=== PATIENT | male | born 1980 | race Two or more races ===

== ENCOUNTER 2019-05-24 13:56 | Emergency (ER) | payer SELFPAY ==
[~2019-05-24] VITALS: Ht 170.2 cm; Wt 73.3 kg
--- NOTE | 2019-05-24 14:32 | NUR ---
STAPLE SIDE LASTER NOTE: C COLLAR APPLIED. PT WHEELED TO ROOM 5.
[2019-05-24] MEDS ORDERED: HYDROcodone/APAP 5/325 TABLET PO ONE (15:00)
[2019-05-24] MEDS ORDERED: HYDROcodone/APAP 5/325 TABLET ONE (15:17)
[2019-05-24] MEDS ORDERED: ONDANSETRON ODT 4 MG PO ONE (16:00)
[2019-05-24] MEDS ORDERED: ONDANSETRON ODT 4 MG ONE (16:05)
[2019-05-24 16:10] VITALS: BP 117/70
== END 2019-05-24 16:12 | disposition home or self-care (01) ==
LOC: ED 16:06
DX: S16.1XXA Strain of muscle, fascia and tendon at neck level, initial encounter (principal); S20.211A Contusion of right front wall of thorax, initial encounter; S70.01XA Contusion of right hip, initial encounter; Y04.8XXA Assault by other bodily force, initial encounter; Y93.89 Activity, other specified; Y92.410 Unspecified street and highway as the place of occurrence of the external cause; Y99.8 Other external cause status
CPT/HCPCS: 71101; 72125; 73502; 99284; Q0162

== ENCOUNTER 2020-04-06 09:45 | Emergency (ER) | payer SELFPAY ==
[~2020-04-06] VITALS: Ht 172.7 cm; Wt 71.0 kg
--- NOTE | 2020-04-06 11:03 | NUR ---
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
[2020-04-06] MEDS ORDERED: HYDROcodone/APAP 5/325 TABLET ONE (11:24)
[2020-04-06] MEDS ORDERED: ONDANSETRON ODT 4 MG ONE (11:24)
[2020-04-06] MEDS ORDERED: METHOCARBAMOL 750 MG TABLET ONE (11:24)
[2020-04-06] MEDS ORDERED: ONDANSETRON ODT 8 MG PO ONE (11:30)
[2020-04-06] MEDS ORDERED: HYDROcodone/APAP 5/325 TABLET PO ONE (11:30)
[2020-04-06] MEDS ORDERED: METHOCARBAMOL 750 MG TABLET PO ONE (11:30)
--- NOTE | 2020-04-06 11:38 | NUR ---
MEDS GIVEN PER ERP ORDER FOR "20"/10 R CHEST WALL PAIN. CALL LIGHT WITHIN REACH, VSS/UPDATED IN COMPUTER.
--- NOTE | 2020-04-06 12:10 | NUR ---
PT STATES PAIN DECREASED TO 7/10, DOWN FROM 20/10. IS AND TEACHING PROVIDED.
[2020-04-06 12:47] VITALS: BP 106/64
== END 2020-04-06 13:00 ==
LOC: ED 12:55
DX: S29.011A Strain of muscle and tendon of front wall of thorax, initial encounter (principal); X58.XXXA Exposure to other specified factors, initial encounter; Y93.89 Activity, other specified; Y92.89 Other specified places as the place of occurrence of the external cause; Y99.0 Civilian activity done for income or pay
CPT/HCPCS: 71101; 93005; 99283; Q0162

== ENCOUNTER 2020-08-15 03:30 | Emergency (ER) | payer SELFPAY ==
[~2020-08-15] VITALS: Ht 172.7 cm; Wt 74.3 kg
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
[2020-08-15] MEDS ORDERED: AZITHROMYCIN 500 MG TABLET ONE (04:20)
[2020-08-15] MEDS ORDERED: KETOROLAC 30 MG/1 ML ONE (04:20)
[2020-08-15] MEDS ORDERED: CEFTRIAXONE 1,000 MG ONE (04:20)
[2020-08-15 04:25] LABS: BASOPHILS % (AUTO) 1 % (0-1); EOSINOPHILS % (AUTO) 2 % (1-7); LYMPHOCYTES % (AUTO) 24 % (22-44); MEAN CORPUSCULAR HEMOGLOBIN 32.5 pg (27.5-34.5); MEAN PLATELET VOLUME 7.6 fL (7.4-10.4); MONOCYTES % (AUTO) 7 % (2-9); NEUTROPHILS % (AUTO) 65 % (42-75); PLATELET COUNT 252 x10^3/uL (130-400); RED BLOOD COUNT 4.95 x10^6/uL (4.38-5.82); RED CELL DISTRIBUTION WIDTH 13.4 % (9.4-14.8)
[2020-08-15 04:27] LABS: MD NO
[2020-08-15 04:27] LABS: MICROSCOPIC NOT IND
[2020-08-15] MEDS ORDERED: AZITHROMYCIN 500 MG TABLET PO ONE (04:30)
[2020-08-15] MEDS ORDERED: KETOROLAC 30 MG/1 ML IM ONE (04:30)
[2020-08-15] MEDS ORDERED: CEFTRIAXONE 1,000 MG IM ONE (04:30)
[2020-08-15 04:36] LABS: ALBUMIN 3.7 g/dL (3.4-5.0); ANION GAP 6 mmol/L (5-15); CALCIUM 8.5 mg/dL (8.5-10.1); CHLORIDE 111 mmol/L (98-107)
--- NOTE | 2020-08-15 04:36 | NUR ---
us at bedside. will continue to monitor. all medication orders administered. call hayden in reach. will continue to monitor.
[2020-08-15 04:37] LABS: CREATININE 0.85 mg/dL (0.7-1.3)
--- NOTE | 2020-08-15 05:15 | NUR ---
patient ambulated to bathroom with steady gait. call hayden in reach. safety maintained. will continue to monitor.
--- NOTE | 2020-08-15 05:50 | NUR ---
DISCHARGE INSTRUCTIONS REVIEWED WITH PATIENT. NO QUESTIONS. WORK NOTE PROVIDED AND ENCOURAGMENT TO USE WORK NOTE AND LIMITED DUTY AT WORK. PATIENT STATES "WELL I HAVE TO WORK" AFTER GIVEN THESE PREVIOUSLY AFTER [employer] AND REPORTS THAT HE HAS BEEN WORKING AND LIFTING HEAVY WEIGHT WITHOUT ADHERING TO HIS PROVIDERS INSTRUCTED RESTRICTIONS. PATIENT ACKNOWLEDGES THIS EDUCATION. ALL PERSONAL BELONGINGS WITH PATIENT. NO IV PLACED DURING ER VISIT TODAY. STEADY GAIT TO LOBBY
[2020-08-15 06:09] VITALS: BP 107/57
== END 2020-08-15 06:15 | disposition home or self-care (01) ==
LOC: ED 05:06
DX: N50.811 Right testicular pain (principal); R07.89 Other chest pain; A64 Unspecified sexually transmitted disease; F17.210 Nicotine dependence, cigarettes, uncomplicated
CPT/HCPCS: 36415; 71045; 76870; 80048; 81003; 82040; 85025; 87491; 87591; 96372; 99285; 99406; J0696; J1885

== ENCOUNTER 2020-09-28 17:08 | Emergency (ER) | payer SELFPAY ==
[~2020-09-28] VITALS: Ht 172.7 cm; Wt 72.4 kg
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
[2020-09-28 18:24] LABS: ALANINE AMINOTRANSFERASE 31 U/L (12-78); ALBUMIN 3.8 g/dL (3.4-5.0); ANION GAP 5 mmol/L (5-15); CHLORIDE 109 mmol/L (98-107); CREATININE 0.95 mg/dL (0.7-1.3)
[2020-09-28 18:28] LABS: ALKALINE PHOSPHATASE 53 U/L (45-117); BILIRUBIN,TOTAL 0.4 mg/dL (0.2-1.0); TOTAL PROTEIN 6.8 g/dL (6.4-8.2); TROPONIN I < 0.015 ng/mL (0.000-0.045)
[2020-09-28 18:35] LABS: BASOPHILS % (AUTO) 1 % (0-1); EOSINOPHILS % (AUTO) 1 % (1-7); LYMPHOCYTES % (AUTO) 22 % (22-44); MEAN CORPUSCULAR HEMOGLOBIN 32.5 pg (27.5-34.5); MEAN CORPUSCULAR HGB CONC 34.9 g/dL (33.2-36.2); MEAN PLATELET VOLUME 7.9 fL (7.4-10.4); MONOCYTES % (AUTO) 7 % (2-9); NEUTROPHILS % (AUTO) 70 % (42-75); PLATELET COUNT 242 x10^3/uL (130-400); RED BLOOD COUNT 4.87 x10^6/uL (4.38-5.82); RED CELL DISTRIBUTION WIDTH 13.4 % (9.4-14.8)
[2020-09-28 18:38] VITALS: BP 108/59
[2020-09-28 18:38] LABS: MD NO
--- NOTE | 2020-09-28 18:46 | NUR ---
Report given to Loyd IYER
--- NOTE | 2020-09-28 19:00 | NUR ---
repeat ekg done
== END 2020-09-28 19:22 | disposition home or self-care (01) ==
LOC: ED 18:55
DX: R07.89 Other chest pain (principal); R10.31 Right lower quadrant pain; M25.512 Pain in left shoulder
CPT/HCPCS: 36415; 71045; 80053; 84484; 85025; 93005; 99285

== ENCOUNTER 2020-10-24 17:58 | Emergency (ER) | payer SELFPAY ==
[~2020-10-24] VITALS: Ht 172.7 cm; Wt 73.3 kg
[2020-10-24 18:06] VITALS: BP 138/82
[2020-10-24 18:33] LABS: BASOPHILS % (AUTO) 1 % (0-1); EOSINOPHILS % (AUTO) 2 % (1-7); LYMPHOCYTES % (AUTO) 34 % (22-44); MD NO; MEAN CORPUSCULAR HEMOGLOBIN 32.5 pg (27.5-34.5); MEAN CORPUSCULAR HGB CONC 34.9 g/dL (33.2-36.2); MEAN PLATELET VOLUME 8.1 fL (7.4-10.4); MONOCYTES % (AUTO) 7 % (2-9); NEUTROPHILS % (AUTO) 57 % (42-75); PLATELET COUNT 246 x10^3/uL (130-400); RED BLOOD COUNT 4.87 x10^6/uL (4.38-5.82); RED CELL DISTRIBUTION WIDTH 13.2 % (9.4-14.8)
[2020-10-24 18:44] LABS: ALANINE AMINOTRANSFERASE 30 U/L (12-78); ALBUMIN 4.2 g/dL (3.4-5.0); ANION GAP 5 mmol/L (5-15); CALCIUM 8.8 mg/dL (8.5-10.1); CHLORIDE 109 mmol/L (98-107); CREATININE 0.91 mg/dL (0.7-1.3)
[2020-10-24 18:46] LABS: ALKALINE PHOSPHATASE 55 U/L (45-117); BILIRUBIN,TOTAL 0.3 mg/dL (0.2-1.0); TOTAL PROTEIN 7.3 g/dL (6.4-8.2)
--- NOTE | 2020-10-24 20:16 | NUR ---
PA STUDENT AT BS.
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
[2020-10-24 21:13] LABS: MICROSCOPIC NOT IND
== END 2020-10-24 21:13 | disposition home or self-care (01) ==
LOC: ED 20:48
DX: K40.91 Unilateral inguinal hernia, without obstruction or gangrene, recurrent (principal); F17.210 Nicotine dependence, cigarettes, uncomplicated; Z88.6 Allergy status to analgesic agent
CPT/HCPCS: 36415; 76705; 80053; 81003; 85025; 99284